=== PATIENT | female | born 2005 | race Caucasian/White ===

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

== ENCOUNTER 2024-03-10 18:05 | Emergency (ER) | payer OTHER ==
[~2024-03-10] VITALS: Ht 149.9 cm; Wt 61.2 kg
[~2024-03-10 18:05] MED LIST: ABILIFY MYCITE2 M2; BUSP5 PO; ESCI20 PO; HYDR1TAB94 PO; IBUP600 PO; PRAZ2 PO
[2024-03-10 18:20] VITALS: BP 136/89
[2024-03-10] MEDS ORDERED: LIDOCAINE1 EACH TOP (20:55)
[2024-03-10] MEDS ORDERED: Lidocaine 4% 1 Patch TOP ONE (20:55)
[2024-03-10] MEDS ORDERED: Ketorolac Tromethamine 15mg Vial IM ONE (20:55)
== END 2024-03-10 21:09 | disposition home or self-care (01) ==
LOC: ER 18:05
DX: M25.551 Pain in right hip (principal); V89.2XXA Person injured in unspecified motor-vehicle accident, traffic, initial encounter; Z79.899 Other long term (current) drug therapy
CPT/HCPCS: 73502; 96372; 99283-25; A9270; J1885

== ENCOUNTER 2024-06-05 14:00 | Observation (INO) | payer OTHER ==
[~2024-06-05] VITALS: Ht 149.9 cm; Wt 60.0 kg
[~2024-06-05 14:00] MED LIST changes: -ABILIFY MYCITE2 M2; +ABILIFY MYCITE2 M2 PO; +LIDOCAINE1 EACH TOP
[2024-06-05] MEDS ORDERED: NS 1,000 ML IV ONE (14:35)
[2024-06-05] MEDS ORDERED: Charcoal/Sorbitol 50 GM (Cherry Flavor) PO ONE (14:45)
[2024-06-05] MEDS ORDERED: LORazepam 2 MG/ML 1ML Injection IV ONE (14:50)
[2024-06-05 15:08] LABS: BASOPHILS ABSOLUTE AUTO 0.04 K/mm3 (0.00-0.23); BASOPHILS PERCENT AUTO 0 % (0-2); EOSINOPHILS ABSOLUTE AUTO 0.02 K/mm3 (0.00-0.68); EOSINOPHILS PERCENT AUTO 0 % (0-6); Hematocrit 39.8 % (33.0-51.0); Hemoglobin 13.8 g/dL (11.5-16.0); IMMATURE GRAN ABSOLUTE AUTO 0.07 K/mm3 (0.00-0.10); IMMATURE GRAN PERCENT AUTO 1 % (0-1); LYMPHOCYTES ABSOLUTE AUTO 1.22 K/mm3 (0.84-5.20); LYMPHOCYTES PERCENT AUTO 10 % (21-46); MONOCYTES ABSOLUTE AUTO 0.31 K/mm3 (0.16-1.47); MONOCYTES PERCENT AUTO 3 % (4-13); Mean Corpuscular HGB 30.5 pg (26.0-34.0); Mean Corpuscular HGB Conc 34.7 g/dL (31.5-36.5); Mean Corpuscular Volume 88 fL (80-100); Mean Platelet Volume 9.8 fL (9.1-12.4); NEUTROPHILS ABSOLUTE AUTO 10.09 K/mm3 (1.96-9.15); NEUTROPHILS PERCENT AUTO 86 % (41-73); Platelet Count 291 K/mm3 (150-400); RDW Coefficient Variation 12.7 % (11.7-14.2); RDW Standard Deviation 40.4 fL (35.1-46.3); Red Blood Cell Count 4.52 M/mm3 (3.80-5.20); White Blood Cell Count 11.75 K/mm3 (4.00-11.30)
[2024-06-05 15:20] LABS: Ethanol (Alcohol), Blood, Med 5 mg/dL; Salicylate <1.7 mg/dL (2.8-20.0)
[2024-06-05 15:23] LABS: Acetaminophen, Random <2.0 ug/mL (10.0-30.0); Alanine Aminotransfer (ALT/SGP 21 U/L (12-78); Albumin, Blood 4.2 g/dL (3.4-5.0); Albumin/Globulin Ratio 1.1 (0.8-1.8); Alk Phos 70 U/L (50-136); Anion Gap 11 mmol/L (3-11); Aspartate Aminotrans (AST/SGOT 27 U/L (12-37); Bilirubin, Total 0.9 mg/dL (0.1-1.0); Blood Urea Nitrogen 10 mg/dL (8-24); CO2, Blood 23 mmol/L (21-32); Calcium, Blood 9.1 mg/dL (8.5-10.1); Chloride, Blood 102 mmol/L (98-108); Creatinine, Blood 0.59 mg/dL (0.40-1.00); Globulin, Blood 3.8 g/dL (2.2-4.0); Glomerular Filtration Rate 132 (60-); Glucose, Blood 120 mg/dL (70-99); Sodium, Blood 132 mmol/L (136-145)
[2024-06-05] MEDS ORDERED: LORazepam 2 MG/ML 1ML Injection IV PRN (17:30)
[2024-06-05] MEDS ORDERED: FLU VACC TS2024-25(6MOS UP)/PF 45 MCG/0.5 ML SYRINGE IM ONE (17:30)
[2024-06-05] MEDS ORDERED: NS 1,000 ML IV SCH (18:00)
[2024-06-05 20:10] VITALS: BP 117/80
[2024-06-06 00:39] VITALS: BP 120/77
[2024-06-06 04:21] LABS: BASOPHILS ABSOLUTE AUTO 0.07 K/mm3 (0.00-0.23); BASOPHILS PERCENT AUTO 1 % (0-2); EOSINOPHILS ABSOLUTE AUTO 0.06 K/mm3 (0.00-0.68); EOSINOPHILS PERCENT AUTO 1 % (0-6); Hematocrit 40.2 % (33.0-51.0); Hemoglobin 13.3 g/dL (11.5-16.0); IMMATURE GRAN ABSOLUTE AUTO 0.05 K/mm3 (0.00-0.10); IMMATURE GRAN PERCENT AUTO 1 % (0-1); LYMPHOCYTES ABSOLUTE AUTO 1.87 K/mm3 (0.84-5.20); LYMPHOCYTES PERCENT AUTO 17 % (21-46); MONOCYTES ABSOLUTE AUTO 0.52 K/mm3 (0.16-1.47); MONOCYTES PERCENT AUTO 5 % (4-13); Mean Corpuscular HGB 29.7 pg (26.0-34.0); Mean Corpuscular HGB Conc 33.1 g/dL (31.5-36.5); Mean Corpuscular Volume 90 fL (80-100); Mean Platelet Volume 9.3 fL (9.1-12.4); NEUTROPHILS ABSOLUTE AUTO 8.48 K/mm3 (1.96-9.15); NEUTROPHILS PERCENT AUTO 77 % (41-73); Platelet Count 294 K/mm3 (150-400); RDW Coefficient Variation 12.7 % (11.7-14.2); Red Blood Cell Count 4.48 M/mm3 (3.80-5.20); White Blood Cell Count 11.05 K/mm3 (4.00-11.30)
[2024-06-06 04:45] LABS: Bun/Creatinine Ratio 13.8 (12.0-20.0); Calcium, Blood 8.6 mg/dL (8.5-10.1); Creatinine, Blood 0.51 mg/dL (0.40-1.00); Magnesium, Blood 2.1 mg/dL (1.6-2.4); Potassium, Blood 3.8 mmol/L (3.5-5.5)
[2024-06-06 05:08] VITALS: BP 111/72
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
[2024-06-06 07:01] VITALS: BP 119/79
[2024-06-06] MEDS ORDERED: Enoxaparin 40 MG/0.4 ML SYR SC SCH (09:00)
[2024-06-06] MEDS ORDERED: Nicotine 14 MG PATCH TOP SCH (09:19)
--- NOTE | 2024-06-06 09:56 | NUR ---
am note this rn assumed care at 0700. vital signs stable. tele sinus rhythm. patient is alert and oriented x4. neuro is intact. perrla.patient is able to make needs known and uses call light appropriately. denies pain, chest pain/pressure or shortness of breath. see shift assessment for further detials. this rn called md luciano, whom is the psychiatrist to discuss BHU per md Boland , did not answer and this rn left a voicemail.
[2024-06-06 12:04] VITALS: BP 119/68
[2024-06-06] MEDS ORDERED: Mag Hydrox/AL Hydrox/Simeth 30 ML UDC PO ONE (12:55)
[2024-06-06] MEDS ORDERED: Acetaminophen 325 MG TABLET PO PRN (12:55)
--- NOTE | 2024-06-06 13:16 | NUR ---
update this rn gave report to vikki paula at [facility]. they will call when they are on their way to get her.
[2024-06-06 13:38] LABS: Source, Urine Clean Catch
[2024-06-06 13:43] LABS: Appearance, Urine Clear (Clear); Bilirubin, Urine Neg (Neg); Blood, Urine Neg (Neg); Glucose Qualitative, Urine Neg (Neg); Ketones, Urine Neg (Neg); Leukocyte Esterase, Urine Neg (Neg); Nitrite, Urine Neg (Neg); Protein, Urine Neg (Neg); Specific Gravity, Urine 1.005 (1.003-1.022); Urobilinogen, Urine NORM (Normal)
[2024-06-06 13:53] LABS: Color, Urine Pale Yellow (P-Yellow)
[2024-06-06 13:59] LABS: U Amphetamine Screen Not Detected; U Barbituate Screen Not Detected; U Benzodiazapine Screen Not Detected; U Buprenorphine Screen Not Detected; U Cannabinoids Screen DETECTED; U Cocaine Screen Not Detected; U Methadone Screen Not Detected; U Methamphetamine Screen Not Detected; U Opiates Screen Not Detected; U Oxycodone Screen Not Detected; U Phencyclidine Screen Not Detected
--- NOTE | 2024-06-06 16:14 | NUR ---
left for [facility] patient left at 1613 for [facility]. patient left with [facility] personal and security. patient belongings with [facility] personal. patient left in no distress.
[2024-06-06] MEDS ORDERED: HYDPAM50 PO (17:15)
== END 2024-06-06 16:22 ==
LOC: ER 14:00 → PCU 14:01 → ER 17:24 → PCU 17:24 → ERHOLD 17:24 → PCU 20:02 → ERHOLD 20:02 → PCU 06-06 16:22
PROVIDERS: Student in an Organized Health Care Education/Training Program; ADMIT Family Medicine
DX: T43.592A Poisoning by other antipsychotics and neuroleptics, intentional self-harm, initial encounter (principal); T45.0X1A Poisoning by antiallergic and antiemetic drugs, accidental (unintentional), initial encounter; D72.829 Elevated white blood cell count, unspecified; E87.1 Hypo-osmolality and hyponatremia; G89.29 Other chronic pain; M54.50 Low back pain, unspecified; Z79.899 Other long term (current) drug therapy
CPT/HCPCS: 36415; 80048; 80053; 80320; 81003; 81025; 83735; 84703; 85025; 93005; 93010; 96361; 96374; 99285-25; A9270; G0378; G0480; J1650; J2060; J7030

== ENCOUNTER 2024-06-06 15:54 | Inpatient (IN) | payer OTHER ==
[~2024-06-06] VITALS: Ht 149.9 cm; Wt 61.8 kg
[2024-06-06] MEDS ORDERED: Ibuprofen 600 MG Tab PO ONE (17:00)
[2024-06-06] MEDS ORDERED: HYDPAM50 PO (17:15)
[2024-06-06] MEDS ORDERED: Nicotine Polacrilex 2 MG Gum PO PRN (17:20)
[2024-06-06] MEDS ORDERED: HydrOXYzine Pamoate 50 MG Cap PO PRN ×2 (17:55→18:35)
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
[2024-06-06] MEDS ORDERED: Aluminum Hydroxide 320MG/5ML 473 ML PO PRN (18:35)
[2024-06-06] MEDS ORDERED: Ibuprofen 600 MG Tab PO PRN (18:35)
[2024-06-06] MEDS ORDERED: OLANZapine ODT 10 MG Tab MM PRN (18:35)
[2024-06-06] MEDS ORDERED: FLU VACC TS2024-25(6MOS UP)/PF 45 MCG/0.5 ML SYRINGE IM ONE (18:40)
[2024-06-06] MEDS ORDERED: Polyethylene Glycol 3350 17 gm PO PRN (18:40)
[2024-06-06] MEDS ORDERED: TraZODone HCl 50 MG Tab PO PRN (18:40)
[2024-06-06] MEDS ORDERED: Melatonin 3 MG Tab PO PRN (18:40)
[2024-06-06] MEDS ORDERED: Acetaminophen 325 MG TABLET PO PRN (18:40)
[2024-06-06] MEDS ORDERED: Calcium Carbonate 500 MG Tab Chew PO PRN (18:40)
[2024-06-06] MEDS ORDERED: Ondansetron 4 MG SoluTab MM PRN (18:50)
[2024-06-06 19:52] VITALS: BP 127/77
--- NOTE | 2024-06-07 04:13 | NUR ---
SHIFT SUMMARY PATIENT ANXIOUS AND WORRIED AT THE BEGINNING OF SHIFT. ATTEMPTING TO CALL A FRIEND (LAXMI) TO MAKE SURE HER CAT IS BEING TAKEN CARE OF. PATIENT DENIES SI, HI, OR AVH. COOPERATIVE WITH MEDICATIONS. TO BED AFTER SNACK. PATIENT APPEARED TO BE SLEEPING WELL T/O NIGHT. NOW AWAKE AND TEARFUL VERBALIZED THAT SHE HAD A NIGHTMARE BUT NOT ABLE TO REMEMBER WHAT THE DREAM WAS ABOUT. ALSO C/O SEGURA. PATIENT NOW SITTING IN SENSORY ROOM WITH SOOTHING LIGHTS. TYLENOL GIVEN FOR SEGURA. CONTINUE TO MONITOR Q15MIN
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
[2024-06-07] MEDS ORDERED: Multivitamins 1 Tab PO SCH (09:00)
[2024-06-07] MEDS ORDERED: Lidocaine 4% 1 Patch TOP SCH (09:00)
[2024-06-07] MEDS ORDERED: ARIPiprazole 2 MG Tablet PO SCH (09:00)
[2024-06-07] MEDS ORDERED: Citalopram Hydrobromide 20 MG Tab PO SCH (09:00)
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
[2024-06-08 01:24] VITALS: BP 119/72
--- NOTE | 2024-06-08 04:05 | NUR ---
Patient is alert and oriented times four. She participated in activities of the milieu and ate with her peers at snack time. She denied SI,HI and AVH during evening assessment. Ibuprophen was given effectively for Lumbar pain. Will continue monitoring closely every 15 minutes for safety and comfort.
[2024-06-08 08:10] VITALS: BP 124/61
--- NOTE | 2024-06-08 09:43 | NUR ---
ASSUMED PT CARE @0700. PT AA&OX4. SHE IS PLEASANT AND COOPERATIVE WITH CARE. SHE REPORTS THAT SHE WAKES UP FEELING FEARFUL AND DOES NOT KNOW WHY. SHE STATES THAT SHE DOES NOT KNOW IF SHE HAS NIGHTMEARS BECAUSE SHE CAN NOT REMEMBER. SHE DID REPORTS ANXIETY BUT WAS ABLE TO TALK ABOUT COPING SKILLS AND DO SOME DEEP BREATHING WITH THIS RN. SHE WAS ENCOURAGING AND HELPING A PEER WITH DEEP BREATHING A SHORT TIME LATER. SHE REPORTED THAT HELPING PEERS ALSO HELPS HER. SHE DID NOT NEED PRN ANXIETY MEDS. THIS RN WAS ENCOURAGING AND RECOMMENDED THAT SHE SPEEK WITH THE DOCTOR ABOUT WAKING UP FEARFUL. SHE VERBALIZED UNDERSTANDING
--- NOTE | 2024-06-08 16:08 | NUR ---
SHIFT SUMMARY NO CLINICAL CHANGES DURING SHIFT. PT HAS BEEN PLEASANT AND COOPERATIVE. SHE DENIES SI, AVH. SHE HAS BEEN ENGAGED WITH STAFF AND PEERS. SHE HAD A VISIT FROM HER FRIEND LENORA. SHE HAS PARTICIPATED IN GROUP, MEALS, AND SHOWER. SHE DENIES MEDICATION SIDE EFFECTS AND REPORTS A GOOD MOOD. SHE DENIES ANY CURRENT NEEDS OR CONCERNS. NO PRN MEDICATION GIVEN. PT HAS BEEN USING LEARNED COPING SKILLS SUCH DEEP BREATHING. SHE HAS ENGAGED THIS RN WITH QUESTIONS ABOUT MEDICATION AND GOALS AFTER DISCHARGE. WILL CONTINUE POC
[2024-06-08 21:38] VITALS: BP 122/63
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
--- NOTE | 2024-06-09 04:22 | NUR ---
SHIFT SUMMARY Patient is A&OX4 with sad/anxious affect last night. She is worried that she was being watched constantly by people she does not know or remember. She is very worried about possible losing her memories and not being able to figure this out. She was very tearful. Emotional support given at the time, and Zydis ODT 10mg given for relief with good response. Slept well last night with sleep hours so far around 8 hours. Will continue close monitoring every 15 minutes for safety and comfort
[2024-06-09 07:37] VITALS: BP 134/83
--- NOTE | 2024-06-09 08:14 | NUR ---
SHIFT ASSESSMENT: PT DENIED SI, HI AND AVH. SHE REPORTED ANXIETY 6/10w AND PAIN LEVEL 6/10w. PT WAS GIVEN HYDROXYZINE 50MG FOR ANXIETY. HER MOOD IS, "ANXIOUS BUT HOPEFUL BECAUSE I'M TRYNG TO WORK ON MY PROGRAM SO I CAN DO IT AFTER I GET OUT OF HERE." HER AFFECT WAS CONGRUENT WITH HER STATED MOOD. SHE IS PLEASANT AND COOPERATIVE WITH CARE.
--- NOTE | 2024-06-09 15:43 | NUR ---
HOSPITAL FOLLOW UP APPOINTMENT INFORMATION Patient is scheduled to meet with Hubert Tenorio from [facility] crisis team at 1000 on 06/17/24 // [address] [place], [place] [address] // [phone] ALEISHA entered appointment information into patient's discharge packet
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
[2024-06-09 19:29] VITALS: BP 136/81
[2024-06-09] MEDS ORDERED: QUEtiapine Fumarate 200 MG Tab PO SCH (21:00)
--- NOTE | 2024-06-10 04:06 | NUR ---
SHIFT SUMMARY PT IN GROUP ROOM AT START OF SHIFT, WATCHING TV WITH PEERS. PT DENIES ANY SI, HI, THOUGHTS OF SELF HARM OR AVH. PT STATED HER MOOD AT START OF SHIFT WAS "DETERMINED". PT HAD EVENING SNACK, WAS COMPLIANT WITH MEDS. REQUESTED AND RECEIVED PRN MELATONIN. AT APPROXIMATELY 2049, PT WAS IN HER ROOM, REPORTED FEELING ANXIOUS AND WAS TEARFUL, STATED SHE FEELS LIKE EVERYONE IS TALKING ABOUT HER AND THAT NO ONE LIKES HER. PT THEN STATED SHE WANTS TO GO HOME, BUT IS ALSO ANXIOUS ABOUT BEING DISCHARGED. MASS SCORE OF 3, MEDICATED WITH PRN VISTARIL. AT APPROXIMATLEY 2139, PT LESS ANXIOUS BUT STATES SHE CAN'T SLEEP, REQUESTED AND RECEIVED PRN TRAZODONE. PT HAS APPEARED TO SLEEP WELL THROUGHTOUT THE NIGHT WITH RESPIRATIONS CONFIRMED. Q15 MINUTE CHECKS TO CONTINUE PER UNIT PROTOCOL/PT SAFETY.
[2024-06-10 08:08] VITALS: BP 128/76
--- NOTE | 2024-06-10 08:08 | NUR ---
IMPORTANT MENTAL HEALTH HOLD INFORMATION SW spoke via telephone with MARIZA Finnegan from [facility] who recommends mental health hold be allowed to run its course. Patient is calm and cooperative with treatement and denies SI / HI at this time. Mental health hold to conclude on June at 1700
--- NOTE | 2024-06-10 09:26 | NUR ---
PT STATED SHE DID NOT WANT TO APPLY LIDOCAINE PATCH THIS AM AND WISHES TO "SAVE IT FOR WHEN I NEED IT"
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
--- NOTE | 2024-06-10 18:39 | NUR ---
SHIFT NOTE PT CALM AND PLEASANT THIS EVENING. SHE HAS BEEN COMPLIANT WITH MEDS THIS SHIFT. DENIES HI/SI/AVTH. PT INTERACTING WITH PEERS WELL AND PLAYING BALL IN THE HALLWAYS. SHE ASKED FOR PRN NICOTINE GUM FREQUENTLY T/O THE DAY.
[2024-06-10] MEDS ORDERED: QUEtiapine Fumarate 300 MG Tab PO SCH (21:00)
[2024-06-10 22:49] VITALS: BP 128/72
--- NOTE | 2024-06-11 04:55 | NUR ---
SHIFT SUMMARY PATIENT UP IN MILIEU. DENIES SI, HI, OR AVH. PATIENT VERBALIZED THAT SHE WAS HAPPY AND THAT SHE DIDN'T NEED " ANYTHING EXTRA FOR ANXIETY TODAY". PATIENT COOPERATIVE WITH MEDICATIONS. APPEARS TO BE SLEEPING WELL T/O NIGHT WITH RESP EVEN AND UNLABORED. CONTINUE TO MONITOR Q15MIN.
[2024-06-11 07:59] LABS: CHOL/HDL RATIO 2.7; Cholesterol 153 mg/dL (50-200); HDL Cholesterol 57 mg/dL (>39); LDL/HDL RATIO 1.4; Low Density Lipoprotein Chol 81 mg/dL (0-110); Triglycerides 75 mg/dL (30-140); Very Low Density Lipoprot Chol 15 mg/dL (6-28)
[2024-06-11 08:01] VITALS: BP 118/69
--- NOTE | 2024-06-11 08:58 | NUR ---
PT STATES SHE IS LOOKING FORWARD TO GOING HOME SOON. STATES SHE HAS A PLAN FOR HOUSING AND HAS BEEN WORKING WITH PROMPT CARE RN FOR THIS. SHE STATES SHE SLEPT WELL LAST NIGHT AND "WHATEVER THE DOCTOR DID TO CHANGE THE MEDICATIONS WORKED." SHE STATES SHE FEELS RESTED AND MOOD IS IMPROVED. NO CONCERNS OR NEEDS EXPRESSED. CONTINUE 15 MIN CHECKS.
--- NOTE | 2024-06-11 09:35 | NUR ---
PT REQUESTED MEDICATION FOR ANXIETY. STATES THAT BEING AROUND "ANOTHER PATIENT" MAKES HER ANXIOUS BUT THAT SHE REALIZES "IT'S JUST THE WAY IT IS." EXPRESSES NEED FOR VISTARIL. MEDICATED PER EMAR.
--- NOTE | 2024-06-11 09:36 | NUR ---
IMPORTANT DISCHARGE INFORMATION PATIENT WILL BE PICKED UP BY HER FRIEND ITZEL ON 06/13/24 AT 5PM FOLLOW UP APPOINTMENT ON 06/23/24 AT 3:15PM WITH [facility]: [facility] PATIENT GIVEN RESOURCES FOR: [facility] HEALTHCARE CONSULTANT, HOUSING, FOOD PANTRYS, CLOTHING, CRISIS SUPPORT, [facility] AND SI PEVENTION.
--- NOTE | 2024-06-11 16:52 | NUR ---
SHIFT SUMMARY: PT STATES IMPROVED LEVELS OF ANXIETY AFTER MEDICATED TODAY. CONTINUES TO BE GOAL ORIENTED AND LOOKS FORWARD TO LEAVING THIS FACILITY AND FINDING PLACE TO LIVE. PARTICIPATED IN ALL ACTIVITIES TODAY WITH FULL ENGAGEMENT. PLAYED GAMES WITH OTHER PATIENTS. USED PHONE THIS EVENING TO CONTACT OUTSIDE SUPPORT PERSONS. PLAN FOR D/C TOMORROW EVENING AFTER 5 PM. SHE AGREES TO THIS PLAN.
--- NOTE | 2024-06-11 17:40 | NUR ---
MEDICATED FOR C/O INCREASING DISCOMFORT IN LOWER BACK. RATES PAIN 5/10 WITH 3 BEING AN ACCEPTABLE LEVEL.
[2024-06-11 19:53] VITALS: BP 114/75
--- NOTE | 2024-06-12 04:10 | NUR ---
SHIFT SUMMARY PATIENT IN MILIEU WATCHING TV, VISITING WITH PEERS AND STAFF. VERBALIZED THAT SHE FEELS "HAPPY" DENIES SI, HI OR AVH. APPEARS TO BE SLEEPING WELL T/O NIGHT RESP EVEN AND UNLABORED. CONTINUE TO MONITOR Q15MIN
[2024-06-12 07:57] VITALS: BP 122/68
[2024-06-12] MEDS ORDERED: NICO2 PO (10:25)
[2024-06-12] MEDS ORDERED: QUET300 PO (10:26)
[2024-06-12] MEDS ORDERED: MELA3 PO (10:27)
--- NOTE | 2024-06-12 17:02 | NUR ---
SHIFT SUMMARY/DISCHARGE NO ACUTE EVENTS TODAY. PT DENIED SI, HI, AVTH. EXPRESSED EXCITEDMENT AND ANXIOUSNESS ABOUT DISCHARGE TODAY; VISTARIL GIVEN PER EMAR. PT PARTICIPATED IN GROUPS AND SOCIALIZED W/ PEERS TODAY. DISCHARGE EDUCATION GIVEN W/ DOCUMENTS AND DISCHARGE PAPER SIGNED. PT BELONGINGS ALSO W/ PT AND PT DISCHARGED W/ SISTER RIDE. PT OUT OF UNIT AT 1700.
== END 2024-06-12 17:02 | disposition home or self-care (01) | DRG 885 ==
LOC: BHU 15:54
PROVIDERS: Student in an Organized Health Care Education/Training Program; ADMIT Psychiatry & Neurology Psychiatry
DX: F33.2 Major depressive disorder, recurrent severe without psychotic features (principal); R45.851 Suicidal ideations; Z87.81 Personal history of (healed) traumatic fracture; Z79.899 Other long term (current) drug therapy; Z79.1 Long term (current) use of non-steroidal anti-inflammatories (NSAID)
CPT/HCPCS: 36415; 80061; 83036; A9270